=== PATIENT | female | born 1950 | race Caucasian/White ===

== ENCOUNTER 2021-10-01 11:12 | Observation (INO) | payer OTHER, BC ==
[2021-10-01 12:30] LABS: BASO % 0.4 % (0-2.0); HEMOGLOBIN 14.6 GM/dL (10.7-15.3); LYMPH % 27.8 % (8-40); MCHC 34.1 g/dl (32.0-36.0); MEAN CELL VOLUME 91.1 fl (80-96); MEAN PLT VOLUME 8.6 fl (7.5-11.1); MONO % 9.7 % (3.8-10.2); NEUT % 60.1 % (42.8-82.8); PLATELET COUNT 255 10^3/uL (134-434); RBC 4.72 M/mm3 (3.60-5.2); RDW 12.8 % (11.6-15.6); WHITE BLOOD COUNT 5.3 K/mm3 (4.0-10.0)
[2021-10-01 12:50] LABS: BLOOD UREA NITROGEN 10.6 mg/dL (7-18)
[2021-10-01 12:51] LABS: ALBUMIN 3.9 g/dl (3.4-5.0)
[2021-10-01 12:54] LABS: CREATININE 0.7 mg/dL (0.55-1.3)
[2021-10-01 12:56] LABS: BILIRUBIN,TOTAL 0.6 mg/dL (0.2-1)
[2021-10-01 13:32] LABS: URINE APPEARANCE CLEAR; URINE BILIRUBIN NEGATIVE (NEGATIVE); URINE COLOR YELLOW; URINE GLUCOSE (UA) NEGATIVE (NEGATIVE); URINE KETONE NEGATIVE (NEGATIVE); URINE LEUK ESTERASE NEGATIVE (NEGATIVE); URINE NITRITE NEGATIVE (NEGATIVE); URINE PROTEIN NEGATIVE (NEGATIVE); URINE UROBILINOGEN 0.2 mg/dL (0.2-1.0)
[2021-10-01] MEDS ORDERED: POLYETHYLENE GLYCOL (HEALTHYLAX) 3350 17 GM PACKET PO PRN (19:29)
[2021-10-01] MEDS ORDERED: ACETAMINOPHEN 1000 MG/100 ML BAG IVPB ONE (19:38)
[2021-10-01] MEDS ORDERED: ACETAMINOPHEN INJECTION 100 ML IVPB ONE (19:38)
[2021-10-01] MEDS ORDERED: KETOROLAC TROMETHAMINE 15 MG/ML VIAL IVPUSH ONE (22:08)
[2021-10-01] MEDS ORDERED: KETOROLAC TROMETHAMINE 15 MG/ML VIAL ONE (22:17)
[2021-10-01] MEDS ORDERED: MELATONIN 5 MG TABLETS PO ONE (23:07)
[2021-10-01 23:56] VITALS: BMI 38.2
[2021-10-02] MEDS ORDERED: ACETAMINOPHEN 325 MG TABLET (FP) PO PRN (02:00)
[2021-10-02] MEDS: INSULIN SLIDING SCALE (NOVOLOG) 1 VIAL SQ SCH ×2 (06:06→12:03)
[2021-10-02 07:31] LABS: BASO % 0.5 % (0-2.0); EOS % 2.8 % (0-4.5); HEMATOCRIT 39.8 % (32.4-45.2); HEMOGLOBIN 13.7 GM/dL (10.7-15.3); LYMPH % 22.8 % (8-40); MCH 31.5 pg (25.7-33.7); MCHC 34.5 g/dl (32.0-36.0); MEAN CELL VOLUME 91.2 fl (80-96); MEAN PLT VOLUME 8.8 fl (7.5-11.1); MONO % 10.1 % (3.8-10.2); NEUT % 63.8 % (42.8-82.8); PLATELET COUNT 230 10^3/uL (134-434); RBC 4.36 M/mm3 (3.60-5.2); RDW 12.8 % (11.6-15.6); WHITE BLOOD COUNT 4.8 K/mm3 (4.0-10.0)
[2021-10-02 07:47] LABS: BLOOD UREA NITROGEN 17.6 mg/dL (7-18); MAGNESIUM 2.4 mg/dL (1.8-2.4)
[2021-10-02 07:50] LABS: CREATININE 0.8 mg/dL (0.55-1.3)
[2021-10-02 07:51] LABS: CALCIUM 8.9 mg/dL (8.5-10.1)
[2021-10-02 08:09] VITALS: PULSE 61
[2021-10-02 16:42] VITALS: BP 124/68; TEMP 97.2
== END 2021-10-02 18:40 | disposition home or self-care (01) ==
LOC: JER 11:12 → JERBED 19:31 → J4W 23:06
PROVIDERS: ADMIT Internal Medicine; ATTEND Family Medicine
PROC: 3E0333Z Introduction of Anti-inflammatory into Peripheral Vein, Percutaneous Approach (ICD-10-PCS; principal; 2021-10-01)
PROC: 3E033NZ Introduction of Analgesics, Hypnotics, Sedatives into Peripheral Vein, Percutaneous Approach (ICD-10-PCS; 2021-10-01)
DX: R07.9 Chest pain, unspecified (principal); E78.5 Hyperlipidemia, unspecified; R73.03 Prediabetes; E66.9 Obesity, unspecified; Z68.38 Body mass index [BMI] 38.0-38.9, adult; Z88.6 Allergy status to analgesic agent
CPT/HCPCS: 36415; 71046-TC-FY; 71275-TC; 80048; 80053; 80061; 81003; 82962; 83036; 83735; 84443; 84484; 85025; 85379; 87086; 93005; 93010; 96374; 96375; 99285-25; C9803-CS; G0378; Q9967; U0003; U0005

== ENCOUNTER 2023-11-08 02:54 | Observation (INO) | payer OTHER, BC ==
[2023-11-08 03:04] VITALS: BMI 38.9
[2023-11-08 04:32] LABS: BASO % 0.3 % (0-2.0); HEMOGLOBIN 14.9 GM/dL (10.7-15.3); LYMPH % 20.2 % (8-40); MCH 31.9 pg (25.7-33.7); MCHC 35.4 g/dl (32.0-36.0); MEAN PLT VOLUME 8.1 fl (7.5-11.1); MONO % 8.6 % (3.8-10.2); NEUT % 69.9 % (42.8-82.8); PLATELET COUNT 259 10^3/uL (134-434); RBC 4.66 M/mm3 (3.60-5.2); RDW 13.5 % (11.6-15.6); WHITE BLOOD COUNT 8.7 K/mm3 (4.0-10.0)
[2023-11-08 04:54] LABS: CALCIUM 9.1 mg/dL (8.5-10.1)
[2023-11-08 04:55] LABS: ALBUMIN 3.7 g/dl (3.4-5.0); BLOOD UREA NITROGEN 13.9 mg/dL (7-18)
[2023-11-08 04:58] LABS: CREATININE 0.8 mg/dL (0.55-1.3)
[2023-11-08 04:59] LABS: BILIRUBIN,TOTAL 0.7 mg/dL (0.2-1)
[2023-11-08 05:52] LABS: POTASSIUM 4.4 mmol/L (3.5-5.1)
[2023-11-08 05:54] LABS: ALBUMIN 3.9 g/dl (3.4-5.0); BLOOD UREA NITROGEN 12.4 mg/dL (7-18); CALCIUM 9.4 mg/dL (8.5-10.1)
[2023-11-08 05:56] LABS: BASO % 0.3 % (0-2.0); EOS % 1.3 % (0-4.5); HEMATOCRIT 43.4 % (32.4-45.2); HEMOGLOBIN 15.1 GM/dL (10.7-15.3); LYMPH % 20.7 % (8-40); MCH 31.1 pg (25.7-33.7); MCHC 34.8 g/dl (32.0-36.0); MEAN CELL VOLUME 89.3 fl (80-96); MEAN PLT VOLUME 8.2 fl (7.5-11.1); MONO % 9.5 % (3.8-10.2); NEUT % 68.2 % (42.8-82.8); PLATELET COUNT 281 10^3/uL (134-434); RBC 4.86 M/mm3 (3.60-5.2); RDW 13.2 % (11.6-15.6); WHITE BLOOD COUNT 9.5 K/mm3 (4.0-10.0)
[2023-11-08 05:57] LABS: CREATININE 0.9 mg/dL (0.55-1.3)
[2023-11-08 05:59] LABS: BILIRUBIN,TOTAL 0.6 mg/dL (0.2-1); TOT PROT 7.1 g/dl (6.4-8.2)
[2023-11-08] MEDS ORDERED: KETOROLAC TROMETHAMINE 15 MG/ML VIAL ONE (06:35)
[2023-11-08] MEDS: KETOROLAC TROMETHAMINE 15 MG/ML VIAL IVPUSH ONE (06:48)
[2023-11-08] MEDS ORDERED: ACETAMINOPHEN INJECTION 100 ML IVPB ONE (08:43)
[2023-11-08] MEDS: ACETAMINOPHEN 1000 MG/100 ML BAG IVPB ONE (08:46)
[2023-11-08] MEDS ORDERED: MELATONIN 1 MG TABLET PO PRN (09:13)
[2023-11-08] MEDS ORDERED: ZOLPIDEM TARTRATE 5 MG TABLET PO PRN (09:13)
[2023-11-08] MEDS ORDERED: IBUPROFEN 400 MG TABLET (FP) PO PRN (13:00)
[2023-11-08] MEDS: ENOXAPARIN NA (PORCINE) 100 MG/1 ML DISP.SYRIN SQ SCH (13:35)
[2023-11-08] MEDS: ASPIRIN 81 MG CHEWABLE TABLETS PO ONE (13:35)
[2023-11-08] MEDS: ACETAMINOPHEN 325 MG TABLET (FP) PO PRN (15:04)
[2023-11-08 21:18] VITALS: BP 113/55; PULSE 64; RESP 16; TEMP 98
[2023-11-08] MEDS: ATORVASTATIN CA 80 MG TABLET (FP) PO SCH (21:21)
[2023-11-08] MEDS ORDERED: ATORVASTATIN CA 10 MG TABLET (FP) PO SCH (22:00)
[2023-11-09] MEDS ORDERED: ASPIRIN 81 MG CHEWABLE TABLETS PO SCH (10:00)
[2023-11-09] MEDS ORDERED: ENOXAPARIN NA (PORCINE) 40 MG/0.4 ML DISP.SYRIN SQ SCH (10:00)
== END 2023-11-08 23:59 | disposition short-term general hospital (02) ==
LOC: JER 02:54 → JERBED 08:23 → J4S 12:53
PROVIDERS: ADMIT Internal Medicine; ATTEND Internal Medicine
PROC: 3E033NZ Introduction of Analgesics, Hypnotics, Sedatives into Peripheral Vein, Percutaneous Approach (ICD-10-PCS; principal; 2023-11-08)
PROC: 3E023GC Introduction of Other Therapeutic Substance into Muscle, Percutaneous Approach (ICD-10-PCS; 2023-11-08)
PROC: 3E0333Z Introduction of Anti-inflammatory into Peripheral Vein, Percutaneous Approach (ICD-10-PCS; 2023-11-08)
DX: I20.0 Unstable angina (principal); R07.9 Chest pain, unspecified; E11.9 Type 2 diabetes mellitus without complications; G47.33 Obstructive sleep apnea (adult) (pediatric); I10 Essential (primary) hypertension; E78.5 Hyperlipidemia, unspecified; Z88.5 Allergy status to narcotic agent
CPT/HCPCS: 36415; 71275-TC; 74174-TC; 80053; 84484; 85025; 85730; 86850; 86900; 86901; 87635; 93005; 93010; 96372; 96374; 96375; 99285-25; G0378; J0131; Q9967